=== PATIENT | female | born 1990 | race Two or more races ===

== ENCOUNTER 2019-01-13 12:43 | Emergency (ER) | payer OTHER ==
[~2019-01-13] VITALS: Ht 162.6 cm; Wt 63.0 kg
[2019-01-13 13:00] VITALS: BP 132/88
== END 2019-01-13 15:49 | disposition left against medical advice (07) ==
LOC: ER 12:43
DX: R51 Headache (principal); R11.2 Nausea with vomiting, unspecified; Z53.21 Procedure and treatment not carried out due to patient leaving prior to being seen by health care provider